=== PATIENT | male | born 1980 | race African-American/Black ===

== ENCOUNTER 2019-05-14 01:40 | Inpatient (IN) ==
[2019-05-14] MEDS ORDERED: SODIUM CHLORIDE 0.9% 1,000 ML IV STA (01:57)
[2019-05-14 02:06] LABS: Basophils % 0.2 % (0.0-0.8); Eosinophils # 0.1 10*3/uL (0.0-0.87); Eosinophils % 0.9 % (0.00-10.9); Hematocrit 37.2 VOL% (42.0-52.0); Hemoglobin 12.6 GM/DL (14.0-18.0); Immature Granulocytes % 0.4 %; Immature Granulocytes Absolute 0.02 #; Lymphocytes # 1.3 10*3/uL (1.4-4.0); Lymphocytes % 23.8 % (21.2-54.2); Mean Corpuscular HGB Conc 33.9 GM/DL (32-36); Mean Corpuscular Volume 90.5 FL (87-102); Mean Platelet Volume 11.8 FL (9.6-12.0); Monocytes % 8.4 % (1.7-12.7); Neutrophils % 66.3 % (38.7-73.9); Platelet Count 152 T/CUMM (130-400); Red Blood Count 4.11 MC/CUMM (3.8-5.5); Red Cell Distribution Width 14.1 % (9.3-17.3); White Blood Count 5.6 T/CUMM (4-12)
[2019-05-14 02:31] LABS: Alanine Aminotransferase 24 U/L (16-61); Albumin 3.6 G/DL (3.4-5.0); Alkaline Phosphatase 52 U/L (45-117); Aspartate Amino Transferase 24 U/L (0-37); Bilirubin,Total < 0.39 MG/DL (0.2-1.0); Blood Urea Nitrogen 12 MG/DL (7-18); Calcium 8.6 MG/DL (8.5-10.1); Estimated Glom Filtration Rate 101 ML/MIN; Glucose 92 MG/DL (74-106); Osmolality,Calculated 293.3 MOS/KG (273-304); Total Protein 7.5 G/DL (6.4-8.3)
[2019-05-14] MEDS ORDERED: PIPERACILLIN/TAZOBACTAM 3,375 MG in SODIUM CHLORIDE 0.9% 100 ML IV STA (02:38)
[2019-05-14] MEDS: LACTATED RINGERS 1,000 ML IV SCH ×5 (03:45→16:52)
[2019-05-14] MEDS ORDERED: ONDANSETRON 4 MG/2 ML VIAL IV PRN (04:48)
[2019-05-14] MEDS ORDERED: ACETAMINOPHEN 325 MG TABLET PO PRN (04:48)
[2019-05-14] MEDS ORDERED: KETAMINE 500 MG/10 ML VIAL ONE (05:26)
[2019-05-14] MEDS ORDERED: ONDANSETRON 4 MG/2 ML VIAL ONE (05:28)
[2019-05-14] MEDS ORDERED: MIDAZOLAM 2 MG/2 ML VIAL ONE (05:28)
[2019-05-14] MEDS ORDERED: PROPOFOL 200 MG/20 ML VIAL IV ONE (05:28)
[2019-05-14] MEDS ORDERED: LIDOCAINE 2% 5 ML VIAL ONE (05:28)
[2019-05-14] MEDS ORDERED: DEXAMETHASONE 4 MG/1 ML VIAL ONE (05:28)
[2019-05-14] MEDS ORDERED: METOCLOPRAMIDE 10 MG/2 ML VIAL ONE (05:28)
[2019-05-14] MEDS ORDERED: NEOSTIGMINE 10 MG/10 ML VIAL ONE (05:29)
[2019-05-14] MEDS ORDERED: SUCCINYLCHOLINE 200 MG/10 ML VIAL ONE (05:29)
[2019-05-14] MEDS ORDERED: GLYCOPYRROLATE 0.4 MG/2 ML VIAL ONE (05:29)
[2019-05-14] MEDS ORDERED: LACTATED RINGERS 1,000 ML IV ONE (05:29)
[2019-05-14] MEDS ORDERED: SEVOFLURANE 1 UNIT/15 MINUTE INH ONE (05:29)
[2019-05-14] MEDS ORDERED: ROCURONIUM 100 MG/10 ML VIAL IV ONE (05:29)
[2019-05-14] MEDS: HYDROmorphone 2 MG/1 ML VIAL IV PRN ×5 (06:29→23:35)
[2019-05-14] MEDS ORDERED: INFLUENZA VIRUS VACCINE 0.5 ML SYRINGE IM ONE (07:13)
[2019-05-14] MEDS: PANTOPRAZOLE 40 MG TABLET PO SCH (08:32)
[2019-05-14 12:29] LABS: Apearance,Urine CLEAR (Clear); Bilirubin,Urine Negative (Negative); Blood, Urine Moderate mg/dL (Negative); Glucose,Urine (UA) Negative (Negative); Ketones,Urine 5 mg/dL (Negative); Mucus,Urine Occasional /LPF (Occasional); Nitrite,Urine Negative (Negative); Protein,Urine Negative; RBC,Urine 22 /HPF (0-4); Squamous Epithelial Cell,Urine Occasional /HPF (0-10); Urine Color Straw (Yellow); Urine Specific Gravity 1.024 (1.001-1.035); Urine Urobilinogen < 2.0 EU/DL (0.2-1.0); WBC,Urine 9 /HPF (0-6)
[2019-05-14 12:33] LABS: Barbiturates Screen,Urine Negative (Negative); Benzodiazepines Screen,Urine Positive (Negative); Cannabinoid Screen,Urine Positive (Negative); Opiate Screen,Urine Positive (Negative); Phencyclidine Screen,Urine Negative (Negative)
[2019-05-14] MEDS: ceFAZolin 1,000 MG in SYRINGE 1 EACH IV SCH ×2 (13:08→20:30)
[2019-05-15] MEDS: LACTATED RINGERS 1,000 ML IV SCH ×4 (01:02→16:41)
[2019-05-15 04:31] LABS: Basophils % 0.3 % (0.0-0.8); Eosinophils % 0.2 % (0.00-10.9); Hematocrit 34.7 VOL% (42.0-52.0); Hemoglobin 11.5 GM/DL (14.0-18.0); Immature Granulocytes % 0.3 %; Immature Granulocytes Absolute 0.02 #; Lymphocytes # 1.1 10*3/uL (1.4-4.0); Lymphocytes % 17.7 % (21.2-54.2); Mean Corpuscular HGB Conc 33.1 GM/DL (32-36); Mean Corpuscular Volume 90.8 FL (87-102); Mean Platelet Volume 12.1 FL (9.6-12.0); Monocytes % 8.9 % (1.7-12.7); Neutrophils % 72.6 % (38.7-73.9); Platelet Count 139 T/CUMM (130-400); Red Blood Count 3.82 MC/CUMM (3.8-5.5); Red Cell Distribution Width 14.1 % (9.3-17.3); White Blood Count 6.2 T/CUMM (4-12)
[2019-05-15] MEDS: HYDROmorphone 2 MG/1 ML VIAL IV PRN ×5 (04:38→21:50)
[2019-05-15] MEDS: ceFAZolin 1,000 MG in SYRINGE 1 EACH IV SCH ×3 (04:46→20:19)
[2019-05-15 04:48] LABS: Calcium 8.6 MG/DL (8.5-10.1); Osmolality,Calculated 290.4 MOS/KG (273-304)
[2019-05-15] MEDS: PANTOPRAZOLE 40 MG TABLET PO SCH (08:40)
[2019-05-16] MEDS: LACTATED RINGERS 1,000 ML IV SCH ×3 (00:57→17:53)
[2019-05-16] MEDS: HYDROmorphone 2 MG/1 ML VIAL IV PRN ×4 (02:07→21:22)
[2019-05-16] MEDS: ceFAZolin 1,000 MG in SYRINGE 1 EACH IV SCH ×3 (05:02→21:08)
[2019-05-16 05:16] LABS: Basophils % 0.3 % (0.0-0.8); Eosinophils % 0.6 % (0.00-10.9); Hematocrit 36.7 VOL% (42.0-52.0); Hemoglobin 12.4 GM/DL (14.0-18.0); Immature Granulocytes % 0.2 %; Immature Granulocytes Absolute 0.01 #; Lymphocytes # 0.9 10*3/uL (1.4-4.0); Lymphocytes % 13.6 % (21.2-54.2); Mean Corpuscular HGB Conc 33.8 GM/DL (32-36); Mean Corpuscular Volume 89.7 FL (87-102); Mean Platelet Volume 12.2 FL (9.6-12.0); Monocytes % 7.4 % (1.7-12.7); Neutrophils % 77.9 % (38.7-73.9); Platelet Count 142 T/CUMM (130-400); Red Blood Count 4.09 MC/CUMM (3.8-5.5); Red Cell Distribution Width 13.6 % (9.3-17.3); White Blood Count 6.6 T/CUMM (4-12)
[2019-05-16 05:52] LABS: Osmolality,Calculated 283.8 MOS/KG (273-304)
[2019-05-16] MEDS ORDERED: HYDROmorphone 2 MG/1 ML VIAL IV PRN (08:48)
[2019-05-16] MEDS: PANTOPRAZOLE 40 MG TABLET PO SCH (09:18)
[2019-05-17] MEDS: LACTATED RINGERS 1,000 ML IV SCH ×2 (02:10→10:00)
[2019-05-17] MEDS: HYDROmorphone 2 MG/1 ML VIAL IV PRN ×2 (02:10→13:55)
[2019-05-17] MEDS: ceFAZolin 1,000 MG in SYRINGE 1 EACH IV SCH ×3 (05:57→21:56)
[2019-05-17] MEDS: PANTOPRAZOLE 40 MG TABLET PO SCH (08:22)
[2019-05-17] MEDS ORDERED: INFLUENZA VIRUS VACCINE 0.5 ML SYRINGE IM ONE (12:26)
[2019-05-18] MEDS: HYDROmorphone 2 MG/1 ML VIAL IV PRN (00:34)
[2019-05-18] MEDS: ceFAZolin 1,000 MG in SYRINGE 1 EACH IV SCH (05:49)
[2019-05-18] MEDS: PANTOPRAZOLE 40 MG TABLET PO SCH (08:20)
[2019-05-18 11:50] VITALS: BP 150/77
== END 2019-05-18 11:53 | disposition home or self-care (01) | DRG 229 ==
LOC: N.ED 01:40 → N.3E 03:40 → N.EDINP 04:48 → N.3E 04:54
PROVIDERS: ADMIT Surgery; ATTEND Surgery